=== PATIENT | female | born 1985 | race African-American/Black ===

== ENCOUNTER 2016-06-11 07:02 | Emergency (ER) | payer OTHER ==
[~2016-06-11 07:02] MED LIST: CERTAGEN1 EACH PO
[2016-06-11 08:22] LABS: BASOPHIL 0.3 % (0-2); EOSINOPHIL 1.4 % (0-5); HCT 43.8 % (37.0-47.0); HGB 14.5 g/dl (12.5-16.0); LYMPHOCYTE 18.6 % (15-48); MCH 29.2 pg (25.0-31.0); MCHC 33.1 g/dL (32.0-36.0); MCV 88.3 fL (78.0-100.0); MONOCYTE 8.4 % (0-12); NEUTROPHIL 71.3 % (41-80); PLT 340 K/uL (150-400); RBC 4.96 M/uL (4.20-5.40); WBC 15.3 K/uL (4.0-10.5)
[2016-06-11 08:38] LABS: CREATININE 0.8 mg/dL (0.5-1.0); POTASSIUM 3.7 mmol/L (3.5-5.1)
== END 2016-06-11 09:16 | disposition home or self-care (01) ==
LOC: FER 07:02
PROVIDERS: Internal Medicine
DX: O21.0 Mild hyperemesis gravidarum (principal); Z3A.00 Weeks of gestation of pregnancy not specified
CPT/HCPCS: 36415; 80048; 85025; J2765

== ENCOUNTER 2016-08-25 23:47 | Emergency (ER) | payer OTHER ==
[2016-08-26 00:45] LABS: BILIRUBIN NEGATIVE (NEGATIVE); BLOOD NEGATIVE Ery/uL (NEGATIVE); CLARITY CLEAR (CLEAR); COLOR YELLOW (YELLOW); GLUCOSE (U) NORMAL (NORMAL); KETONE (U) 2+ (MODERATE) mg/dL (NEGATIVE); LEUKOCYTES TRACE Leu/uL (NEGATIVE); NITRITE NEGATIVE (NEGATIVE); PROTEIN TRACE (LOW) mg/dL (NEGATIVE); SPECIFIC GRAVITY 1.025 (1.001-1.030); UROBILINOGEN 0.2 mg/dL (0.2-1.0)
[2016-08-26 00:51] LABS: BACTERIA TRACE; MUCOUS TRACE
== END 2016-08-26 01:37 | disposition home or self-care (01) ==
LOC: FER 23:47
PROVIDERS: Emergency Medicine
DX: O9A.212 Injury, poisoning and certain other consequences of external causes complicating pregnancy, second trimester (principal); S20.212A Contusion of left front wall of thorax, initial encounter; O99.89 Other specified diseases and conditions complicating pregnancy, childbirth and the puerperium; E86.0 Dehydration; W10.9XXA Fall (on) (from) unspecified stairs and steps, initial encounter; Y09 Assault by unspecified means
CPT/HCPCS: 81001; 99284

== ENCOUNTER 2020-07-09 03:30 | Emergency (ER) | payer OTHER ==
[~2020-07-09 03:30] MED LIST changes: +AMOXICILLIN500 M1 PO; +AUGMENTIN 875-1 EACH PO; +BACTRIM DS TAB1 EACH PO; +LODINE400 MG PO; +MACROBID100 MG PO; +MEDROL 4MG DOSEP4 MG PO; +NAPROXEN500 MG PO; +ONDANSETRON HCL4 MG PO; +ONDANSETRON ODT4 MG PO/SL; +SKELAXIN800 MG PO; +TAMIFLU 75MG CA75 MG PO; +VENTOLIN HFA IN18 GM INH; +VIBRAMYCIN100 MG PO; +VICODIN 5-3001 EACH PO; +ZOFRAN4 MG PO; +ZPAK PO
[2020-07-09 04:01] LABS: BASOPHIL 0.4 % (0-2); EOSINOPHIL 1.1 % (0-5); HCT 40.8 % (37.0-47.0); HGB 13.4 g/dl (12.5-16.0); LYMPHOCYTE 15.5 % (15-48); MCH 29.8 pg (25.0-31.0); MCHC 32.8 g/dL (32.0-36.0); MCV 90.7 fL (78.0-100.0); MONOCYTE 6.2 % (0-12); MPV 9.1 fL (6.0-9.5); NEUTROPHIL 76.4 % (41-80); NRBC 0; PLT 328 K/uL (150-400); RDW 13.3 % (11.5-14.0); WBC 19.6 K/uL (4.0-10.5)
[2020-07-09 04:15] LABS: BILIRUBIN NEGATIVE (NEGATIVE); BLOOD TRACE-INTACT Ery/uL (NEGATIVE); CLARITY HAZY (CLEAR); COLOR YELLOW (YELLOW); GLUCOSE (U) NORMAL (NORMAL); LEUKOCYTES 1+ Leu/uL (NEGATIVE); NITRITE NEGATIVE (NEGATIVE); PROTEIN TRACE (LOW) mg/dL (NEGATIVE); SPECIFIC GRAVITY >=1.030 (1.001-1.030); UROBILINOGEN 0.2 mg/dL (0.2-1.0); pH 5.5 (5.0-9.0)
[2020-07-09 04:20] LABS: BACTERIA 1+; URINARY RBC RARE
[2020-07-09 04:26] LABS: ALBUMIN 3.6 g/dL (3.4-5.0); BILIRUBIN - TOTAL 0.2 mg/dL (0.2-1.0); BUN/CREAT RATIO (CALC) 12.9 RATIO; CREATININE 0.85 mg/dL (0.51-0.95); GLOBULIN (CALCULATION) 3.9 g/dL; MAGNESIUM 2.1 mg/dL (1.8-2.4); POTASSIUM 3.4 mmol/L (3.5-5.1); TOTAL PROTEIN 7.5 g/dL (6.4-8.2)
[2020-07-09 05:15] LABS: CORONAVIRUS 2019 SARS-COV-2 NEGATIVE (NEGATIVE); INFLUENZA A NAA NEGATIVE (NEGATIVE)
[2020-07-09] MEDS ORDERED: METRONIDAZOLE500 MG PO (08:14)
[2020-07-09] MEDS ORDERED: ZPAK PO (08:14)
[2020-07-11 21:09] LABS: CHLAMYDIA TRACHOMATIS, NAA Negative (Negative); NEISSERIA GONORRHOEAE, NAA Negative (Negative)
== END 2020-07-09 08:41 | disposition home or self-care (01) ==
LOC: FER 03:30
PROVIDERS: Emergency Medicine
DX: N73.0 Acute parametritis and pelvic cellulitis (principal); R11.2 Nausea with vomiting, unspecified; F17.210 Nicotine dependence, cigarettes, uncomplicated; Z20.822 Contact with and (suspected) exposure to COVID-19
CPT/HCPCS: 36415; 76856; 80053; 81001; 83690; 83735; 84145; 84703; 85025; 87210; 87491; 87591; J0694; J1170; J1885; J2405; J7030; Q9967; U0002

== ENCOUNTER 2020-09-13 12:02 | Emergency (ER) | payer OTHER ==
[~2020-09-13 12:02] MED LIST changes: +METRONIDAZOLE500 MG PO
[2020-09-13 13:18] LABS: BASOPHIL 0.6 % (0-2); BILIRUBIN NEGATIVE (NEGATIVE); BLOOD 1+ Ery/uL (NEGATIVE); CLARITY CLEAR (CLEAR); COLOR YELLOW (YELLOW); EOSINOPHIL 2.6 % (0-5); GLUCOSE (U) NORMAL (NORMAL); HCT 42.2 % (37.0-47.0); HGB 14.1 g/dl (12.5-16.0); LEUKOCYTES 2+ Leu/uL (NEGATIVE); LYMPHOCYTE 27.5 % (15-48); MCH 30.4 pg (25.0-31.0); MCHC 33.4 g/dL (32.0-36.0); MCV 90.9 fL (78.0-100.0); MONOCYTE 13.4 % (0-12); MPV 10.2 fL (6.0-9.5); NEUTROPHIL 55.4 % (41-80); NITRITE NEGATIVE (NEGATIVE); NRBC 0; PLT 255 K/uL (150-400); PROTEIN NEGATIVE (NEGATIVE); RBC 4.64 M/uL (4.20-5.40); RDW 13.7 % (11.5-14.0); SPECIFIC GRAVITY 1.015 (1.001-1.030); UROBILINOGEN 0.2 mg/dL (0.2-1.0); WBC 8.5 K/uL (4.0-10.5)
[2020-09-13 13:31] LABS: BACTERIA TRACE
[2020-09-13 13:59] LABS: CORONAVIRUS 2019 SARS-COV-2 NEGATIVE (NEGATIVE); INFLUENZA A NAA NEGATIVE (NEGATIVE)
[2020-09-13 15:17] LABS: CREATININE 0.96 mg/dL (0.51-0.95); POTASSIUM 4.1 mmol/L (3.5-5.1)
[2020-09-13 15:18] LABS: ALBUMIN 3.3 g/dL (3.4-5.0); BILIRUBIN - TOTAL 0.2 mg/dL (0.2-1.0); GLOBULIN (CALCULATION) 3.8 g/dL; TOTAL PROTEIN 7.1 g/dL (6.4-8.2)
== END 2020-09-13 14:48 | disposition home or self-care (01) ==
LOC: FER 12:02
PROVIDERS: Emergency Medicine
DX: B34.9 Viral infection, unspecified (principal); Z20.822 Contact with and (suspected) exposure to COVID-19; F17.210 Nicotine dependence, cigarettes, uncomplicated
CPT/HCPCS: 36415; 71045; 80053; 81001; 85025; J1885; J7120; U0002

== ENCOUNTER 2021-02-07 08:34 | Emergency (ER) | payer OTHER ==
[2021-02-07 09:23] LABS: BASOPHIL 0.7 % (0-2); EOSINOPHIL 1.9 % (0-5); HCT 41.9 % (37.0-47.0); HGB 13.9 g/dl (12.5-16.0); LYMPHOCYTE 30.2 % (15-48); MCH 30.4 pg (25.0-31.0); MCHC 33.2 g/dL (32.0-36.0); MCV 91.7 fL (78.0-100.0); MONOCYTE 8.2 % (0-12); MPV 9.2 fL (6.0-9.5); NEUTROPHIL 58.8 % (41-80); NRBC 0; PLT 321 K/uL (150-400); RBC 4.57 M/uL (4.20-5.40); RDW 13.3 % (11.5-14.0); WBC 12.3 K/uL (4.0-10.5)
[2021-02-07 09:23] LABS: BILIRUBIN NEGATIVE (NEGATIVE); BLOOD 2+ Ery/uL (NEGATIVE); CLARITY CLEAR (CLEAR); COLOR YELLOW (YELLOW); GLUCOSE (U) NORMAL (NORMAL); LEUKOCYTES 1+ Leu/uL (NEGATIVE); NITRITE NEGATIVE (NEGATIVE); PROTEIN NEGATIVE (NEGATIVE); UROBILINOGEN 0.2 mg/dL (0.2-1.0)
[2021-02-07 09:41] LABS: AMORPHOUS URATES CRYSTALS TRACE; BACTERIA TRACE
[2021-02-07 09:51] LABS: ALBUMIN 3.7 g/dL (3.4-5.0); BILIRUBIN - TOTAL 0.5 mg/dL (0.2-1.0); BUN/CREAT RATIO (CALC) 7.4 RATIO; CREATININE 1.48 mg/dL (0.51-0.95); GLOBULIN (CALCULATION) 4.1 g/dL; POTASSIUM 4.1 mmol/L (3.5-5.1); TOTAL PROTEIN 7.8 g/dL (6.4-8.2)
== END 2021-02-07 10:29 | disposition home or self-care (01) ==
LOC: FER 08:34
PROVIDERS: Emergency Medicine
DX: R10.9 Unspecified abdominal pain (principal); G89.18 Other acute postprocedural pain; N93.9 Abnormal uterine and vaginal bleeding, unspecified; F17.200 Nicotine dependence, unspecified, uncomplicated
CPT/HCPCS: 36415; 80053; 81001; 85025; 99284

== ENCOUNTER 2021-03-16 08:21 | Emergency (ER) | payer OTHER ==
[2021-03-16] MEDS ORDERED: FLEXERIL5 MG PO (12:10)
== END 2021-03-16 12:23 | disposition home or self-care (01) ==
LOC: FER 08:21
DX: M54.50 Low back pain, unspecified (principal); M54.2 Cervicalgia; F17.200 Nicotine dependence, unspecified, uncomplicated; V49.40XA Driver injured in collision with unspecified motor vehicles in traffic accident, initial encounter
CPT/HCPCS: 72125; 72131; J1885

== ENCOUNTER 2021-06-12 15:42 | Emergency (ER) | payer OTHER ==
[~2021-06-12 15:42] MED LIST changes: +FLEXERIL5 MG PO
[2021-06-12 16:42] LABS: BASOPHIL 0.3 % (0-2); EOSINOPHIL 0.3 % (0-5); HCT 41.9 % (37.0-47.0); HGB 13.9 g/dl (12.5-16.0); LYMPHOCYTE 13.7 % (15-48); MCH 29.5 pg (25.0-31.0); MCHC 33.2 g/dL (32.0-36.0); MONOCYTE 7.3 % (0-12); MPV 9.8 fL (6.0-9.5); NEUTROPHIL 77.7 % (41-80); NRBC 0; PLT 237 K/uL (150-400); RBC 4.71 M/uL (4.20-5.40); RDW 13.2 % (11.5-14.0); WBC 19.4 K/uL (4.0-10.5)
[2021-06-12 16:47] LABS: BUN/CREAT RATIO (CALC) 9.2 RATIO; CREATININE 0.87 mg/dL (0.51-0.95); POTASSIUM 4.1 mmol/L (3.5-5.1)
[2021-06-12 16:48] LABS: CORONAVIRUS 2019 SARS-COV-2 NEGATIVE (NEGATIVE); INFLUENZA A NAA NEGATIVE (NEGATIVE)
[2021-06-12 17:50] LABS: BILIRUBIN NEGATIVE (NEGATIVE); BLOOD NEGATIVE Ery/uL (NEGATIVE); CLARITY CLEAR (CLEAR); COLOR YELLOW (YELLOW); GLUCOSE (U) NORMAL (NORMAL); LEUKOCYTES NEGATIVE Leu/uL (NEGATIVE); NITRITE NEGATIVE (NEGATIVE); PROTEIN NEGATIVE (NEGATIVE); SPECIFIC GRAVITY 1.015 (1.001-1.030)
[2021-06-12 18:11] LABS: LACTIC ACID 0.6 mmol/L (0.4-1.9)
[2021-06-12] MEDS ORDERED: VENTOLIN HFA IN18 GM INH (21:12)
[2021-06-12] MEDS ORDERED: CEPHALEXIN500 MG PO (21:12)
[2021-06-12] MEDS ORDERED: ZPAK PO (21:12)
== END 2021-06-12 21:56 | disposition home or self-care (01) ==
LOC: FER 15:42
PROVIDERS: Emergency Medicine; Nurse Practitioner Family
DX: J18.9 Pneumonia, unspecified organism (principal); Z20.822 Contact with and (suspected) exposure to COVID-19
CPT/HCPCS: 36415; 71045; 80048; 81003; 83605; 85025; 87040; 93005; J0696; J1100; J1885; J2405; J7030; Q9967; U0002

== ENCOUNTER 2021-12-27 08:37 | Emergency (ER) | payer OTHER ==
[~2021-12-27 08:37] MED LIST changes: +CEPHALEXIN500 MG PO
[2021-12-27 10:21] LABS: BILIRUBIN NEGATIVE (NEGATIVE); BLOOD TRACE-INTACT Ery/uL (NEGATIVE); CLARITY CLEAR (CLEAR); COLOR YELLOW (YELLOW); GLUCOSE (U) NORMAL (NORMAL); LEUKOCYTES NEGATIVE Leu/uL (NEGATIVE); NITRITE NEGATIVE (NEGATIVE); PROTEIN NEGATIVE (NEGATIVE); UROBILINOGEN 0.2 mg/dL (0.2-1.0)
[2021-12-27 10:27] LABS: URINARY RBC RARE
[2021-12-27 11:06] LABS: CORONAVIRUS 2019 SARS-COV-2 NEGATIVE (NEGATIVE); INFLUENZA A NAA NEGATIVE (NEGATIVE)
[2021-12-27] MEDS ORDERED: AMOXICILLIN500 MG PO (13:15)
[2021-12-27] MEDS ORDERED: PREDNISONE 20MG20 MG PO (13:15)
== END 2021-12-27 13:23 | disposition home or self-care (01) ==
LOC: FER 08:37
PROVIDERS: Emergency Medicine
DX: J02.0 Streptococcal pharyngitis (principal); B95.5 Unspecified streptococcus as the cause of diseases classified elsewhere; Z20.822 Contact with and (suspected) exposure to COVID-19
CPT/HCPCS: 81001; 87880; 99283; J1885; U0002